=== PATIENT | male | born 1990 | race Caucasian/White ===

== ENCOUNTER 2023-08-26 11:33 | Emergency (ER) | payer OTHER, SELFPAY ==
[2023-08-26 11:53] VITALS: BP 149/94; PULSE 76; RESP 18; TEMP 36.8; O2SAT 98; BMI 38.0
--- NOTE | 2023-08-26 12:21 | XRR_ITS ---
PROCEDURE INFORMATION: Exam: XR Left Hand Exam date and time: 08/26/2023 12:37 PM Age: 32 years old Clinical indication: Injury or trauma; Hand; Patient HX: Laceration to left 2nd mcp joint TECHNIQUE: Imaging protocol: Radiologic exam of the left hand. Views: 3 or more views. COMPARISON: No relevant prior studies available. FINDINGS: Bones/joints: Negative for acute bony abnormality. Soft tissues: Unremarkable XR/XR hand LT min 3V* [id number] IMPRESSION: No acute findings.
[2023-08-26] MEDS: lidocaine 1% INJ 10 mL (per mL) INJECTION (12:28)
[2023-08-26] MEDS: tetanus-diphtheria tox (adult) 0.5 mL SDV IM (12:29)
--- NOTE | 2023-08-26 13:13 | ED_ITS ---
HPI - Wound/Laceration General: Chief Complaint: Wound/Laceration Stated Complaint: hand laceration Time Seen by Provider: 08/26/23 11:40 History of Present Illness: Foreign is a 32-year-old [id number] male that presents to the emergency department with a laceration sustained to the left first MCP joint. Patient states that he was feel dressing a deer when the knife slipped and he struck himself in the hand. Patient has active oozing but controlled with pressure Tetanus greater than 5 years ago Associated symptoms: Denies chills, fever(s), nausea or vomiting Review of Systems General: Reports: 10 or more systems reviewed and unremarkable except in HPI and below Const: Denies: fever(s), chills, change in appetite, change in weight, fatigue or malaise Eyes: Denies: change in vision, eye discomfort, eye discharge or eye redness ENMT: Denies: throat pain, enlarged tonsils, odynophagia, hoarseness, ear or mastoid pain, ear discharge, change in hearing, tinnitus, nasal discharge, nasal congestion, post nasal drip or sinus pain Card: Denies: chest pain, palpitations, irregular heart rhythm, edema, dyspnea on exertion, orthopnea or leg pain with exertion Resp: Denies: dyspnea, productive cough, non-productive cough, wheezing, stridor or chest congestion GI: Denies: abdominal pain, nausea, vomiting, dysphagia, diarrhea, constipation, bloating, GI cramping or hematochezia : Denies: flank pain, dysuria, urinary frequency, urinary urgency, urinary hesitancy, oliguria or hematuria Musc: Denies: neck pain, back pain, extremity pain, joint pain, joint swelling, joint redness, joint warmth or muscle weakness Skin/Breast: Denies: rash, pruritus, erythema, photosensitivity or new lesions Neuro: Denies: headache(s), numbness in extremities, weakness in extremities, sensory changes, lack of coordination, difficulty walking, frequent falls, dizziness, confusion, Slurred speech present, difficulty communicating thoughts, seizure-like activity or involuntary movements Endo: Denies: polyuria, polydipsia or tired all the time Derick/Lymph: Denies: easy bruising or easy bleeding Physical Exam Const: COMMON NORMALS: no acute distress, patient oriented x3 and alert GENERAL APPEARANCE: cooperative ORIENTATION/CONSCIOUSNESS: Yes awake, Yes oscar ented to person, Yes oriented to place and Yes oriented to time Neck/C-Spine: COMMON NORMALS: full ROM GENERAL: Yes normal visual inspection Lymph: LYMPHATIC: no lymphadenopathy noted Chest: COMMONS NORMALS: normal inspection of the chest Breast/axilla inspection: Yes no chest deformity, asymmetry, normal contours, no nodules, masses, tenderness Resp: COMMON NORMALS: normal respiratory effort, No retractions and No use of accessory muscles EFFORT & INSPECTION: Yes able to speak in complete sentence s and Yes symmetric chest movement Cardio: COMMON NORMALS: regular rate, regular rhythm and Peripheral pulses 2+ throughout RATE: regular rate RHYTHM: regular rhythm PERIPHERAL PULSES: Peripheral pulses 2+ throughout GI: COMMON NORMALS: Normal to inspection, nondistended, normoactive bowel sounds present, Soft to palpation, non-tender and No hepatosplenomegaly present INSPECTION: Yes normal to inspection PALPATION: Yes Soft to palpation and Yes No hepatosplenomegaly present RECTAL EXAM: Yes deferred Extremity: COMMON NORMALS: normal to inspection NARRATIVE EXTREMITY EXAM: Left upper extremity: Laceration measures approximately 2 cm across the MCP joint of the left index finger. Sustained from a knife Patient has active oozing but it is controllable with pressure Patient wound was explored and it appears that he has a tendon rupture although he has full active extension and flexion of the digit Cap refills less than 3 seconds Sensation intact to light touch GENERAL: Yes normal exam except as noted Neuro: COMMON NORMALS: patient oriented x3 SENSORIUM/ORIENTATION: Yes alert, Yes oriented to person, Yes oriented to place and Yes oriented to time CRANIAL NERVES: Yes CN normal except as noted Psych: COMMON NORMALS: mental status grossly normal, Normal thought process present, cooperative, activity/motor behavior normal, denies homicidal ideation and denies suicidal ideation THOUGHT PROCESS: Normal thought process present Skin: COMMON NORMALS: no rashes or lesions noted, no wounds and turgor normal GENERAL SKIN EXAM: no rashes or lesions noted and turgor normal Procedures Laceration Laceration 1: Site: other (Left index finger-over MCP joint) Side (If applicable): left Size (cm): 2 Description: linear and contaminated Depth: involves tendon Local Anesthetic: lidocaine 1% Amount of anesthesia used (mL): 2 Skin layer closed with: nylon Size (cm): 3-0 Number of sutures: 3 Technique: simple, interrupted and horizontal mattress Number of sutures: 3 Course Vital Signs: Vital signs: Vital Signs Temperature 98.2 F 08/26/23 11:53 Pulse Rate 76 08/26/23 11:53 Respiratory Rate 18 08/26/23 11:53 Blood Pressure 149/94 08/26/23 11:53 Pulse Oximetry 98 08/26/23 11:53 Oxygen Delivery Me thod Room Air 08/26/23 11:53 MDM - Wound/Laceration Medical Decision Making Patient is a 32-year-old [id number] male that has sustained a laceration over the MCP joint of the left index finger. It appears that he is also sustained a tendon injury it was visualized. Patient did undergo XR imaging which revealed no acute findings including foreign bodies or fractures. There was no visible contamination. We scrubbed the area well with Betadine and saline. Irrigated thoroughly We are going to treat him with clindamycin as instructed by Dr. Quintana Patient is going to follow-up with hand surgery this week. Call Monday for an appointment. Splint applied Lab Data Radiology Impressions Hand X-Ray 08/26/23 12:21 IMPRESSION: No acute findings. XR interpretation done by ED provider, pending radiology final review Discharge Plan Discharge Patient Disposition: Home Clinical Impression: Laceration, Tendon injury Condition: Stable Prescriptions: New clindamycin HCl 150 mg capsule 450 mg PO TID 7 Days Qty: 63 0RF Discharge Orders: Discharge ED (Routine); Ordered 08/26/23 Ordered By: Bill Geller Referrals: Koko Stark, DO [Primary Care Provider] - Discharge Diet: Advance as tolerated Discharge Activity: Resume usual activity Patient Instructions: Laceration (ED), Pain Management Activity Restrictions/Additional Instructions: Wear the splint as Instructed. She can follow-up with Dr. Corinne Angeles, hand surgery at [facility]. [facility] [address] His phone number is [phone] Call Monday for an appointment Take the antibiotics as instructed Coding Level of Care Code ED Asthma Educator for Tita Holloway
[2023-08-26] MEDS: clindamycin 150 mg Capsule 450 MG PO (13:31)
[2023-08-26 13:47] VITALS: RESP 16; O2SAT 98
--- NOTE | 2023-08-28 08:52 | DCPLANNER ---
Patient called this morning about his referral to [facility] hand surgeon. I advised the patient that the student records coordinator would be working on it this morning. I personally called Dr. Angeles office to get patient an appointment. Dr. Quesada office can see patient today at 10:30 am. I will call patient to let him know about his appointment. I spoke to patient at 08:52 am. Patient stated he could not go today, but he will call the office to let them know when a good time would be. I called Dr. Dipak richter back to cancel the appointment at 10:30.
--- NOTE | 2023-08-28 09:10 | DCPLANNER ---
Faxed patient chart at 09:09 to [facility] Hand surgeon Dr. Angeles
== END 2023-08-26 13:48 | disposition home or self-care (01) ==
PROVIDERS: Emergency Provider Nurse Practitioner; PCP Electrodiagnostic Medicine
DX: S61.211A Laceration without foreign body of left index finger without damage to nail, initial encounter (principal); S66.912A Strain of unspecified muscle, fascia and tendon at wrist and hand level, left hand, initial encounter; W26.0XXA Contact with knife, initial encounter; Z23 Encounter for immunization
CPT/HCPCS: 12001; 73130; 90471; 90714; 99284

== ENCOUNTER 2023-08-30 09:54 | Day surgery (SDC) | payer OTHER, SELFPAY ==
[2023-08-30] VITALS (19 sets, daily range): BP systolic 132–177; BP diastolic 74–102; PULSE 60–85; RESP 12–18; TEMP 36.2; O2SAT 98–100; BMI 38.0
--- NOTE | 2023-08-30 10:47 | W.PM.OPSUD ---
Surgery/Procedure H&P Update DATE OF PROCEDURE: August 30, 2023 DATE H&P PERFORMED: 08/28/23 H&P UPDATE INFORMATION: I have reviewed H&P completed within last 30 days, I have examined patient prior to procedure and No changes to prior documentation PREOP DIAGNOSIS: Left index finger laceration with possible tendon involvement PRIMARY INDICATION FOR PROCEDURE: Left index finger laceration with possible tendon involvement PLANNED PROCEDURE: Operation Date: 08/30/23 11:20 Proposed Procedures p Irrigation and Debridement, and possible Extensor Tendon Repair Finger: Left Index Finger Laceration Exploration:(Left) - Chapin Nugent DO
[2023-08-30] MEDS: acetaminophen 1,000 MG/100 ML PIGGYBACK 400 MG IV (10:59)
[2023-08-30] MEDS: sodium chloride 0.9% 1,000 ML 30 ML IV (11:00)
[2023-08-30] MEDS: ketorolac 30 mg/mL INJ IVP (11:15)
--- NOTE | 2023-08-30 11:34 | ANES.PREANE2 ---
Pre-Anesthetic Assessment Height/Weight: Height 1.83 m Weight 127.006 kg Temp Pulse Resp BP Pulse Ox O2 Del Method 97.2 F L 66 18 132/88 98 Room Air 08/30/23 10:37 08/30/23 10:37 08/30/23 10:37 08/30/23 10:37 08/30/23 10:37 08/30/23 10:37 Preop Diagnosis: Left index finger laceration with possible tendon involvement Operation Date: 08/30/23 11:20 Proposed Procedures p Irrigation and Debridement, and possible Extensor Tendon Repair Finger: Left Index Finger Laceration Exploration:(Left) - Chapin Boulder, DO Familial anesthetic complications: none Was Beta Heaven taken within 24 hours: N/A Was Clonidine taken within 24 hours: N/A Last intake: Intake Last Liquid Date 08/29/23 Last Liquid Time 19:00 Last Solid Date 08/29/23 Last Solid Time 19:00 Last Intake: 19:00 Social No alcohol and No tobacco Exam alert, oriented x 3, clear to auscultation bilaterally and regular rate & rhythm Airway Submandibular: within normal limits Cervical ROM: within normal limits Mallampati: Class II Dentition: full Pulmonary None reported CV/HEM Hx murmor as a child None reported Hepatic None reported GI Gastroesophageal Reflux Disease (food related) Metabolic None reported Musc/skel None reported Neuropsych None reported Anesthetic Plan ASA status: 2 Anesthesia: MAC Other: Pt wants to try without anesthesia. We will be readily available if needed Risk of > 500 ml blood loss (7ml/kg in children): No Medications/Allergies Home Medications Medication Instructions Recorded Confirmed Last Taken Type clindamycin HCl 150 mg capsule 450 mg PO TID 7 days #63 caps 08/26/23 08/30/23 08/29/23 Rx ondansetron 4 mg disintegrating 4 mg PO Q8H PRN nausea and 08/30/23 Unknown Rx tablet vomiting 3 days #9 tabs tramadol 50 mg tablet 50 mg PO Q6H PRN pain #20 tabs 08/30/23 Unknown Rx Allergies Allergy/AdvReac Type Severity Reaction Status Date / Time No Known Allergies Allergy Verified 08/28/23 13:44 Current Medications Generic Name Dose Route Start Last Admin Trade Name Freq PRN Reason Stop Dose Admin Sodium Chloride 1,000 mls @ 30 mls/hr 08/30/23 10:45 08/30/23 11:00 Sodium Chloride 0.9% IV 08/31/23 10:44 30 mls/hr .Q24H VAMSI Administration PFSH Anesthesia Medical History (Updated 08/29/23 @ 23:23 by Chapin Nugent DO) Laceration of left index finger with tendon involvement Social History (Updated 08/28/23 @ 13:46 by Ashely Rashid LPN) Smoking and tobacco/nicotine status: current every day tobacco/nicotine user smokeless tobacco Alcohol intake: current Alcohol intake frequency: few times a month Data Anesthesia Cardiac Studies: No Data to Display
[2023-08-30] MEDS: ceFAZolin 2,000 MG in sodium chloride 0.9% (plus) 50 ML 100 MG IV (11:54)
[2023-08-30] MEDS: BUPivacaine 0.5% INJ 30 mL INJECTION (13:05)
[2023-08-30] MEDS: lidocaine-epi 1% PF 1:200,000 30 mL SDV INJECTION (13:05)
--- NOTE | 2023-08-30 13:22 | W.PM.BPON ---
Date of Procedure: [August 30, 2023] Surgeon: [Dr. Jovanna NUNEZ] Screwdown Operator(s): [Marco Nugent physician associate] Procedure(s) performed: [Left index finger irrigation and debridement with Index finger EDC extensor tendon repair and sagital band repair] Findings of the procedure(s): [Left index finger laceration with extensor tendon (EDC) laceration and sagital band laceration] Estimated blood loss: [10 mL] Specimen(s) removed: [N/A] Post-operative diagnosis: [Left index finger laceration with extensor tendon (EDC) laceration and sagital band laceration]
--- NOTE | 2023-08-30 13:26 | PM.PACU ---
PACU note Narrative: The patient is a 32-year-old male that just underwent a left index finger I&D with tendon laceration repair. Patient transferred to PACU in stable condition. Pain is well controlled. Dressing and splint is on hand is dry and in place. Patient's fingers are warm and well-perfused. Patient can wiggle fingers. normal cap refill under 2 seconds. Patient has normal elbow range of motion. Unable to assess sensation due to residual localized anesthetic. Exam: awake Disposition: discharged
--- NOTE | 2023-08-30 17:39 | PM.OP ---
Operative Report Date of procedure: August 30, 2023 Pre-op diagnosis: Left index finger zone 5 Dorsal finger Laceration Post-op diagnosis: Left index finger EDC to index finger laceration, sagittal band laceration Procedure done: Left index finger irrigation and debridement Left index finger EDC to index finger tendon repair Left index finger radial sagittal band repair Surgeon: Chapin Nugent DO Neurology Hospitalist: Marco Nugent PA-C: ISAC was necessary for assistance in this case with retraction as well as protection of neurovascular structures as well as to assist in holding finger positioning while performing tendon repair and assist in wound closure Anesthesia: Local Estimated blood loss: 10cc 11min IV fluids: 200mL Complications: None Findings: See operative report narrative Condition: stable Disposition: same day Brief History: Patient presents outpatient follow-up referred due to a left index finger zone 5 laceration while cleaning his deer. Patient is able to flex and extend but has significant pain and weakness with this given the contamination as well as concern for possible extensor tendon laceration through shared decision-making patient elects proceed with a left index finger irrigation debridement and possible tendon repair he understands the ins and outs procedure risk benefits complications alternatives with surgery and through shared decision make elects proceed with surgical intervention all questions answered. Procedure: Patient was seen evaluate in the preoperative holding area. Consent was reviewed and signed with patient correct extremity was then marked. Due to this being a tendon repair discussed with patient elects to proceed with local anesthesia for this procedure to help guide with appropriate tendon repair. He subsequently taken back to the operative suite kept on the [facility] armboard applied to the left upper extremity. He then subsequently had left upper extremity nonsterile tourniquet applied. At this point time left upper extremity was then prepped and draped in standard orthopedic fashion final timeout performed. Patient received appropriate preoperative antibiotics. Under sterile aseptic technique I then subsequently localized the index finger as well as performed a superficial radial nerve block for local anesthesia. This was then allowed to set up I then utilized Esmarch tourniquet to exsanguinate the left upper extremity and tourniquet was insufflated 250 mmHg. At this point in time I then extended the incision both proximally and distally in standard Mariel fashion full-thickness skin flaps were then created I then dissected down directly over top of the laceration site there is no evidence of infection I then subsequently performed a standard irrigation debridement of the left index finger this was debrided of skin subcutaneous tissue fascia and tendon. (4 cm x 2 cm x 0.5 cm) Once debrided of all devitalized tissue I then was able to thoroughly inspect the left index finger patient's EIP was found to be intact he had completely severed the EDC to the left index finger and this was retracted up proximally. I was able to find and locate the stump. This was then placed under traction and then subsequently stabilized in place for the repair with a 22-gauge needle into the interosseous muscle. I then subsequently visualized that patient did have a complete laceration of the radial sagittal band as well. At this point in time tourniquet was deflated hemostasis satisfactory I then utilizing 4-0 FiberWire performed a 4 core strand repair as well as a 5-0 Prolene epitendinous stitch of the EDC to the index finger. I then had the patient make a fist as well as extend and there was no gapping and an excellent tendon repair was noted. There was subtle subluxation and a noncentralized tendon as result I then utilized Monocryl suture to repair the sagittal band completely into its entirety and then patient was once again asked to make a fist and the tendon was then centralized. This completed my repair. Hemostasis was maintained thoroughly irrigation performed. Incision was then closed in standard interrupted nylon suture fashion. I then placed a finger in a volar blocking splint bulky soft dressing applied patient was then subsequently taken to PACU in stable condition Disposition: Patient taken back in stable condition recovering well patient will be nonweightbearing to the left hand maintain splint until follow-up. Follow-up in the orthopedic office in 2 weeks will be given appropriate pain medication and instructed to complete antibiotics. All questions answered
== END 2023-08-30 13:45 | disposition home or self-care (01) ==
PROVIDERS: PCP Electrodiagnostic Medicine; Visit Provider Student in an Organized Health Care Education/Training Program
PROC: (CPT 26418; principal; 2023-08-30 11:20)
DX: S61.211A Laceration without foreign body of left index finger without damage to nail, initial encounter (principal); W26.0XXA Contact with knife, initial encounter; K21.9 Gastro-esophageal reflux disease without esophagitis; F17.200 Nicotine dependence, unspecified, uncomplicated
CPT/HCPCS: 26418; J0131; J0690; J1885; J3490; J7030

== ENCOUNTER 2023-09-12 06:00 | Outpatient (CLI) | payer OTHER, SELFPAY | END 2023-09-12 06:01 | LOC: SOT 09-15 10:13 | PROVIDERS: Visit Provider Physician Assistant | DX: Z46.89 Encounter for fitting and adjustment of other specified devices (principal); S61.211D Laceration without foreign body of left index finger without damage to nail, subsequent encounter; X58.XXXD Exposure to other specified factors, subsequent encounter | CPT/HCPCS: 97165; 97760; L3806; L3923 ==

== ENCOUNTER 2023-09-15 13:40 | Outpatient (RCR) | payer OTHER, SELFPAY | END 2023-10-12 23:59 | disposition home or self-care (01) | LOC: SOT 13:40 | PROVIDERS: PCP Electrodiagnostic Medicine; Visit Provider Student in an Organized Health Care Education/Training Program | DX: Z51.89 Encounter for other specified aftercare (principal) | CPT/HCPCS: 97022; 97110; 97140 ==

== ENCOUNTER 2023-10-13 06:00 | Outpatient (RCR) | payer OTHER, SELFPAY | END 2023-11-12 23:59 | disposition home or self-care (01) | LOC: SOT 06:00 | PROVIDERS: PCP Electrodiagnostic Medicine; Visit Provider Student in an Organized Health Care Education/Training Program | DX: Z47.89 Encounter for other orthopedic aftercare (principal) | CPT/HCPCS: 97022; 97110; 97140 ==